=== PATIENT | female | born 1970 | race Caucasian/White ===

== ENCOUNTER 2018-08-18 01:26 | Emergency (ER) | payer OTHER ==
[~2018-08-18] VITALS: Ht 177.8 cm; Wt 90.0 kg
--- NOTE | 2018-08-18 02:05 | NUR ---
DC EDUCATION PROVIDED, PT DEMONSTRATES UNDERSTANDING. PT AMBULATED STEADILY TO DC IW RN
[2018-08-18 02:06] VITALS: BP 169/90
== END 2018-08-18 02:08 | disposition home or self-care (01) ==
LOC: ED 02:02
DX: S50.812A Abrasion of left forearm, initial encounter (principal); W50.3XXA Accidental bite by another person, initial encounter; Y93.89 Activity, other specified; Y92.69 Other specified industrial and construction area as the place of occurrence of the external cause; Y99.0 Civilian activity done for income or pay
CPT/HCPCS: 99283

== ENCOUNTER 2019-05-28 07:17 | Outpatient (CLI) | payer OTHER ==
[~2019-05-28 07:17] MED LIST: MUSCLE RELAXER
[2019-05-28] MEDS ORDERED: GADOTERATE 10 MMOL/20 ML VIAL ONE (08:51)
== END 2019-05-28 23:59 | disposition home or self-care (01) ==
LOC: CFH 07:17
PROVIDERS: ATTEND Registered Nurse
DX: M50.322 Other cervical disc degeneration at C5-C6 level (principal); M48.02 Spinal stenosis, cervical region; M50.222 Other cervical disc displacement at C5-C6 level; M47.812 Spondylosis without myelopathy or radiculopathy, cervical region
CPT/HCPCS: 72156; A9575